=== PATIENT | male | born 1990 | race African-American/Black ===

== ENCOUNTER 2021-03-13 04:25 | Emergency (ER) | payer MEDICAID ==
[~2021-03-13] VITALS: Ht 185.4 cm; Wt 90.9 kg
[2021-03-13] MEDS ORDERED: ACETAMINOPHEN 500 MG TABLET PO ONE ×2 (05:00→05:30)
[2021-03-13] MEDS ORDERED: IBUPROFEN 800 MG TABLET PO ONE (05:00)
[2021-03-13 05:44] LABS: COVID AG,FIA SOURCE NASOPHARYNGEAL
[2021-03-13 06:30] VITALS: BP 115/68
== END 2021-03-13 06:41 | disposition home or self-care (01) ==
LOC: EMS 04:27
DX: J40 Bronchitis, not specified as acute or chronic (principal); M79.10 Myalgia, unspecified site; F17.210 Nicotine dependence, cigarettes, uncomplicated; Z20.822 Contact with and (suspected) exposure to COVID-19; Z88.5 Allergy status to narcotic agent
CPT/HCPCS: 99283

== ENCOUNTER 2021-06-02 21:05 | Emergency (ER) | payer MEDICAID ==
[~2021-06-02] VITALS: Ht 185.4 cm; Wt 90.9 kg
[2021-06-02 21:55] VITALS: BP 121/58
[2021-06-02 23:17] LABS: COVID AG,FIA SOURCE NASOPHARYNGEAL
[2021-06-04 04:06] LABS: HIV 1-2 SCREEN 4TH GEN W/RFLX Non Reactive (Non Reactive)
== END 2021-06-03 | disposition home or self-care (01) ==
LOC: EMS 21:21
DX: Z11.3 Encounter for screening for infections with a predominantly sexual mode of transmission (principal); Z20.822 Contact with and (suspected) exposure to COVID-19; Z88.5 Allergy status to narcotic agent; F12.90 Cannabis use, unspecified, uncomplicated
CPT/HCPCS: 36415; 86592; 87389; 87426; 87491; 87591; 99283; U0003

== ENCOUNTER 2021-06-30 03:20 | Emergency (ER) | payer MEDICAID ==
[~2021-06-30] VITALS: Ht 185.4 cm; Wt 90.9 kg
[2021-06-30] MEDS ORDERED: TRAM50TA4 PO (03:30)
[2021-06-30] MEDS ORDERED: PREG75 PO (03:32)
[2021-06-30] MEDS ORDERED: TOPI100T37 PO (03:32)
[2021-06-30] MEDS ORDERED: [UNRECOGNIZED DRUG - CODE] PO (03:32)
[2021-06-30 05:05] VITALS: BP 129/71
[2021-06-30] MEDS ORDERED: HYDROCODONE/ACETAMINOPHEN 5-325 MG TABLET PO ONE (05:15)
[2021-06-30] MEDS ORDERED: KETOROLAC TROMETHAMINE 30 MG/ML VIAL IM ONE (05:15)
== END 2021-06-30 05:35 | disposition home or self-care (01) ==
LOC: EMS 03:22
DX: M25.511 Pain in right shoulder (principal); G89.29 Other chronic pain; F12.90 Cannabis use, unspecified, uncomplicated; Z88.5 Allergy status to narcotic agent
CPT/HCPCS: 96372; 99283; J1885

== ENCOUNTER 2021-07-11 11:48 | Emergency (ER) | payer MEDICAID ==
[~2021-07-11] VITALS: Ht 185.4 cm; Wt 90.9 kg
[~2021-07-11 11:48] MED LIST: PREG75 PO; TOPI100T37 PO; TRAM50TA4 PO; [UNRECOGNIZED DRUG - CODE] PO
[2021-07-11 15:56] VITALS: BP 120/82
== END 2021-07-11 15:58 | disposition home or self-care (01) ==
LOC: EMS 11:48
DX: M25.512 Pain in left shoulder (principal); M25.552 Pain in left hip; F17.210 Nicotine dependence, cigarettes, uncomplicated; Z88.5 Allergy status to narcotic agent; Z79.899 Other long term (current) drug therapy; V43.52XA Car driver injured in collision with other type car in traffic accident, initial encounter; Y93.89 Activity, other specified; Y92.89 Other specified places as the place of occurrence of the external cause; Y99.8 Other external cause status
CPT/HCPCS: 73503; 99284

== ENCOUNTER 2021-09-02 22:19 | Emergency (ER) | payer MEDICAID ==
[~2021-09-02] VITALS: Ht 188 cm; Wt 86.4 kg
[2021-09-02] MEDS ORDERED: ACETAMINOPHEN 325 MG TABLET PO ONE (23:30)
[2021-09-02] MEDS ORDERED: IBUPROFEN 400 MG TABLET PO ONE (23:30)
[2021-09-03 00:15] VITALS: BP 158/89
[2021-09-03] MEDS ORDERED: MORPHINE SULFATE 4 MG/ML SYRINGE IVP ONE ×2 (00:15→01:00)
== END 2021-09-03 02:41 | disposition home or self-care (01) ==
LOC: EMS 22:23
DX: M25.511 Pain in right shoulder (principal); F17.210 Nicotine dependence, cigarettes, uncomplicated; Z76.0 Encounter for issue of repeat prescription; Z79.899 Other long term (current) drug therapy
CPT/HCPCS: 93005; 96374; 99283; J2270

== ENCOUNTER 2023-01-19 10:09 | Emergency (ER) | payer MEDICAID, OTHER ==
[~2023-01-19] VITALS: Ht 185.4 cm; Wt 88.6 kg
[~2023-01-19 10:09] MED LIST changes: +TRAM-559 PO; -TRAM50TA4 PO
[2023-01-19 11:08] VITALS: TEMP 98.2
[2023-01-19] MEDS ORDERED: HYDROCODONE/ACETAMINOPHEN 5-325 MG TABLET PO ONE (11:30)
[2023-01-19] MEDS ORDERED: PERTUSS(ACELL),DIPH,TET VAC/PF 0.5 ML SYRINGE IM. ONE (11:30)
[2023-01-19] MEDS ORDERED: TRAM-559 PO (12:37)
[2023-01-19] MEDS ORDERED: CEPH-558 PO (12:37)
[2023-01-19 13:00] VITALS: BP 118/82; PULSE 77; RESP 16
== END 2023-01-19 13:38 | disposition home or self-care (01) ==
LOC: EMS 10:09
DX: S49.91XA Unspecified injury of right shoulder and upper arm, initial encounter (principal); S91.331A Puncture wound without foreign body, right foot, initial encounter; M25.511 Pain in right shoulder; G43.909 Migraine, unspecified, not intractable, without status migrainosus; F17.210 Nicotine dependence, cigarettes, uncomplicated; Z98.890 Other specified postprocedural states; W19.XXXA Unspecified fall, initial encounter; Y93.89 Activity, other specified; Y92.89 Other specified places as the place of occurrence of the external cause; Y99.8 Other external cause status
CPT/HCPCS: 90471; 90715; 99284

== ENCOUNTER 2023-08-08 16:46 | Emergency (ER) | payer OTHER ==
[~2023-08-08] VITALS: Ht 185.4 cm; Wt 90.9 kg
[~2023-08-08 16:46] MED LIST changes: +CEPH-558 PO
[2023-08-08] MEDS ORDERED: MELO-106 PO (17:53)
[2023-08-08] MEDS ORDERED: CYCL5TAB PO (17:53)
[2023-08-08] MEDS ORDERED: CLIN60LO6 TP (17:53)
[2023-08-08] MEDS ORDERED: TRET20CR5 TP (17:53)
[2023-08-08] MEDS: LevETIRAcetam 500 MG TABLET PO ONE (18:12)
[2023-08-08] MEDS: TraMADol HCL 50 MG TABLET PO ONE (18:13)
[2023-08-08] MEDS: BACLOFEN 10 MG TABLET PO ONE (18:13)
[2023-08-08] MEDS: KETOROLAC TROMETHAMINE 30 MG/ML VIAL IM ONE (18:13)
[2023-08-08 18:24] VITALS: BP 151/71; PULSE 93; RESP 16; TEMP 98.4
== END 2023-08-08 18:41 | disposition home or self-care (01) ==
LOC: EMS 16:46
DX: M54.50 Low back pain, unspecified (principal); I10 Essential (primary) hypertension; G43.909 Migraine, unspecified, not intractable, without status migrainosus; F17.210 Nicotine dependence, cigarettes, uncomplicated; Z98.890 Other specified postprocedural states
CPT/HCPCS: 99284; 96372; J1885